=== PATIENT | female | born 1985 | race Caucasian/White ===

== ENCOUNTER 2016-07-28 04:59 | Inpatient (IN) | payer BC ==
[~2016-07-28] VITALS: Ht 160 cm; Wt 80.0 kg
[~2016-07-28 04:59] MED LIST: ACET-749 PO; ALBU1AER9 INH; EYED OP
[2016-07-28 05:45] VITALS: BMI 31.2
[2016-07-28] MEDS ORDERED: PRENTAB26 PO (05:45)
[2016-07-28] MEDS ORDERED: LACTATED RINGER'S 1000ML 1,000 ML IV SCH (09:16)
[2016-07-28] MEDS ORDERED: LACTATED RINGER'S 1000ML 1,000 ML IV PRN (09:16)
[2016-07-28 09:45] LABS: MEAN CELL VOLUME 91.1 fL (80-100); MEAN CORPUSCULAR HEMOGLOBIN 31.8 pg (25-34); MEAN CORPUSCULAR HGB CONC 34.9 g/dl (32-36); PLATELET COUNT 128 K/uL (130-400); RED BLOOD COUNT 4.06 M/uL (4.2-5.4)
[2016-07-28 09:51] VITALS: Ht 160 cm; Wt 80.0 kg
[2016-07-28] MEDS ORDERED: BUPIVACAINE 0.25% 30 ML VIAL ONE (09:52)
[2016-07-28] MEDS ORDERED: FENTANYL 2MCG/ML ROPIV 1.25MG/ML 100ML BAG EPI ONE (09:53)
[2016-07-28] MEDS ORDERED: FENTANYL CITRATE INJ 50 MCG/1 ML 2 ML VIAL ONE (09:53)
[2016-07-28] MEDS ORDERED: EpHEDrine SULFATE INJ 50 MG/ML AMP ONE (09:53)
[2016-07-28] MEDS ORDERED: LACTATED RINGER'S 1000ML 500 ML IV PRN (11:17)
[2016-07-28] MEDS ORDERED: NALOXONE HCL INJ 1 MG in SODIUM CHLORIDE 0.9% 1000ML 1,000 ML IV PRN (11:17)
[2016-07-28] MEDS ORDERED: EpHEDrine SULFATE INJ 50 MG/ML AMP IV PRN (11:30)
[2016-07-28] MEDS ORDERED: NALBUPHINE HCL INJ 10 MG/ML AMP IV PRN (11:30)
[2016-07-28] MEDS ORDERED: FENTANYL 2MCG/ML ROPIV 1.25MG/ML 100ML BAG EPI PRN (11:30)
[2016-07-28] MEDS ORDERED: NALOXONE HCL INJ 0.4 MG/1 ML VIAL/CARP IV PRN (11:30)
[2016-07-28] MEDS ORDERED: ONDANSETRON INJ 2 MG/ML 2 ML VIAL IV PRN (11:30)
[2016-07-28] MEDS ORDERED: DiphenhydrAMINE HCL 50 MG/ML VIAL IV PRN (11:30)
[2016-07-28] MEDS ORDERED: OXYTOCIN 30 UNITS/500ML NSS IV ONE (13:36)
[2016-07-28] MEDS ORDERED: ACETAMINOPHEN/CODEINE 300/30MG TAB PO PRN ×2 (14:30)
[2016-07-28] MEDS ORDERED: LANOLIN OINT EXT PRN ×2 (14:30)
[2016-07-28] MEDS ORDERED: SUPERCREAM 0.870 % 15GM JAR EXT PRN (14:30)
[2016-07-28] MEDS ORDERED: OXYTOCIN 30 UNITS/500ML NSS IV PRN (14:30)
[2016-07-28] MEDS ORDERED: ACETAMINOPHEN 325 MG TAB PO PRN (14:30)
[2016-07-28] MEDS ORDERED: BENZOCAINE 20% AER SPR 82.5 GM CAN EXT PRN (14:30)
[2016-07-28] MEDS ORDERED: HYDROCORTISONE ACETATE 25 MG SUPP PR PRN (14:30)
--- NOTE | 2016-07-28 15:55 | DELIVERY SUMMARY ---
DATE OF OPERATION: 07/28/2016 FINDINGS: Viable male with Apgars of 8 and 9. Baby delivered spontaneously over a midline second-degree laceration with a second-degree periurethral laceration. Cord blood samples obtained. Placenta delivered spontaneously. Lacerations repaired with 4-0 Vicryl. ESTIMATED BLOOD LOSS: 300 mL. LABOR NOTE: The patient is a 30-year-old 1, para 0 with an EDC of 22 July at 40+ weeks gestational age admitted in active labor. Patient states the contractions began yesterday afternoon into the evening. She was observed on labor and delivery with cervical change and admitted. The patient has had a benign course. Her blood type is A positive, antibody negative, rubella immune, hepatitis B negative. She declined a quad screen. She had a normal 1-hour Glucola x2 and a negative third trimester beta-strep culture. Upon admission, patient was 6 cm dilated, 90% effaced, and -1 station. Artificial rupture of membranes for clear fluid. After rupture of membranes contractions continued to increase in intensity, anesthesia was consulted and an epidural was placed. The patient progressed to full dilatation and began her second stage. She pushed for little under an hour delivering the viable male infant. Cord was clamped and cut. Cord blood samples obtained and the placenta was delivered spontaneously. Inspection of the perineum showed a midline second-degree laceration and a right second-degree periurethral laceration, both of these were repaired with 4-0 Vicryl. Estimated blood loss was 300 mL. Sponge and needle counts were correct. I attest to the content of the Intraoperative Record and any orders documented therein. Any exceptio ns are noted below.
--- NOTE | 2016-07-28 16:44 | Anesthesia Procedure Note ---
Anesthesia Epidural Removal Nt Date & Time Jul 28, 2016 at 16:43 Vital Signs Pain Intensity: 10.0 Notes Mental Status: alert / awake / arousable, participated in evaluation Nausea / Vomiting: adequately controlled Pain: adequately controlled Airway Patency, RR, SpO2: stable & adequate BP & HR: stable & adequate Hydration State: stable & adequate Neuraxial Anesthesia: was administered Anesthetic Complications: no major complications apparent, pt satisfied with anesthetic care Epidural: removed without complications, with tip intact
[2016-07-28 16:50] VITALS: BP 102/61; PULSE 98; TEMP 37.2
[2016-07-28] MEDS: DOCUSATE SODIUM 100 MG CAP PO SCH (19:16)
[2016-07-28] MEDS: IBUPROFEN 600 MG TAB PO PRN (19:17)
[2016-07-28 20:00] VITALS: BP 111/63; PULSE 92; TEMP 36.7
[2016-07-28 23:40] VITALS: BP 101/59; PULSE 83; TEMP 37.1
[2016-07-29 04:27] VITALS: BP 108/73; PULSE 81; TEMP 36.9
[2016-07-29] MEDS: IBUPROFEN 600 MG TAB PO PRN ×2 (05:00→21:00)
--- NOTE | 2016-07-29 06:25 | Progress Note ---
Subjective Jul 29, 2016. Subjective conversation w/ patient, physical exam Ambulation: ambulating normally Voiding: no voiding problems Passing Gas: Yes Diet Tolerance: Regular Diet Lochia: Small Feeding Type: Breast Feeding Pain: No pain reported this morning, well controlled with Motrin overnight Review of Systems Constitutional: No chills, No fever Respiratory: No cough, No shortness of breath Cardiac: No chest pain Breast: No breast pain Abdomen: No nausea, No pain, No vomiting Female : No dysuria Objective Vital Signs Date Time Temp Pulse Resp B/P Pulse Ox O2 Delivery O2 Flow Rate FiO2 07/29/16 04:27 Room Air 07/29/16 04:27 36.9 81 20 108/73 Room Air 07/28/16 23:40 Room Air 07/28/16 23:40 37.1 83 18 101/59 Room Air 07/28/16 20:00 36.7 92 18 111/63 Room Air 07/28/16 16:50 37.2 98 20 102/61 Room Air 07/28/16 16:50 Room Air Physical Exam General Appearance: WELL-APPEARING, WD/WN, NO APPARENT DISTRESS Respiratory/Chest: lungs clear, normal breath sounds Cardiovascular: regular rate, rhythm, no gallop, no murmur Abdomen: normal bowel sounds, non tender, soft Fundus: Firm, Relation to Umbilicus (At umbilicus) Extremities: no calf tenderness Laboratory Results Last 24 Hours Test 07/28/16 09:32 07/29/16 04:44 White Blood Count 15.20 K/uL Red Blood Count 4.06 M/uL Hemoglobin 12.9 g/dL Hematocrit 37.0 % Mean Corpuscular Volume 91.1 fL Mean Corpuscular Hemoglobin 31.8 pg Mean Corpuscular Hemoglobin Concent 34.9 g/dl RDW Standard Deviation 45.5 fL RDW Coefficient of Variation 13.8 % Platelet Count 128 K/uL Mean Platelet Volume 10.0 fL Medications Current Inpatient Medications Medications (Trade) Dose Ordered Sig/[place] Route Start Time Stop Time Status Last Admin Dose Admin Lactated Ringer's (Lr 1000ml) 1,000 ml @ 125 mls/hr Q8H IV 07/28/16 09:16 07/30/16 09:15 07/28/16 11:08 125 MLS/HR Oxytocin (Pitocin IV) 30 units UD PRN IV 07/28/16 14:30 08/27/16 14:29 Benzocaine (Dermoplast Aero Spr) 1 appln PRN PRN EXT 07/28/16 14:30 08/27/16 14:29 07/28/16 17:54 1 APPLN Cocaine HCl (Supercream 0.870% Cr) BID PRN EXT 07/28/16 14:30 08/11/16 14:29 Hydrocortisone Acetate (Anusol Hc Supp) 25 mg BID PRN NM 07/28/16 14:30 08/27/16 14:29 Lanolin (Lanolin Oint) PRN PRN EXT 07/28/16 14:30 08/27/16 14:29 Prenat Multivit/ Turbo Generator Oiler/Iron/Folic Ac ( Vitamin Tab) 1 tab DAILY PO 07/29/16 08:00 08/28/16 07:59 Ibuprofen (Motrin Tab) 600 mg Q4H PRN PO 07/28/16 14:30 08/27/16 14:29 07/29/16 05:00 600 MG Acetaminophen (Tylenol Tab) 650 mg Q6H PRN PO 07/28/16 14:30 08/27/16 14:29 Acetaminophen/ Codeine Phosphate (Tylenol w/ Codeine #3 Tab) 1 tab Q4H PRN PO 07/28/16 14:30 08/27/16 14:29 Acetaminophen/ Codeine Phosphate (Tylenol w/ Codeine #3 Tab) 2 tab Q4H PRN PO 07/28/16 14:30 08/27/16 14:29 Bisacodyl (Dulcolax Tab) 5 mg 20 PO 07/29/16 20:00 07/29/16 20:01 Docusate Sodium (coLACE CAP) 100 mg BID PO 07/28/16 20:00 08/27/16 19:59 07/28/16 19:16 100 MG Ferrous Sulfate (Feosol Tab) 325 mg DAILY PO 07/29/16 08:00 08/28/16 07:59 Assessment and Plan Post- Day#: 1 Continue Routine Care: - Vital Signs reviewed and WNL (temp max 37.2) - Blood Type: A+, GBS- , Rubella Immune - Patient doing well clinically - Encourage Ambulation today - Pain well controlled with Motrin - Tolerating PO diet
[2016-07-29 07:25] VITALS: BP 102/64; PULSE 69; TEMP 36.5; O2SAT 99
[2016-07-29] MEDS: DOCUSATE SODIUM 100 MG CAP PO SCH ×2 (08:03→19:38)
[2016-07-29] MEDS: PRENATAL VITAMIN TAB PO SCH (08:03)
[2016-07-29] MEDS: FERROUS SULFATE 325 MG TAB PO SCH (08:04)
[2016-07-29 11:45] VITALS: BP 114/76; PULSE 85; TEMP 37.5; O2SAT 98
[2016-07-29 16:15] VITALS: BP 114/70; PULSE 98; TEMP 36.6; O2SAT 99
[2016-07-29] MEDS ORDERED: BISACODYL 5 MG TABEC PO SCH (20:00)
[2016-07-29 23:35] VITALS: BP 107/72; PULSE 72; TEMP 36.6
--- NOTE | 2016-07-30 06:43 | Progress Note ---
Subjective Jul 30, 2016. Subjective conversation w/ patient, physical exam Ambulation: ambulating normally Voiding: no voiding problems Passing Gas: Yes Diet Tolerance: Regular Diet Lochia: Small Feeding Type: Breast Feeding Pain: No pain reported this morning Review of Systems Constitutional: No chills, No fever Respiratory: No cough, No shortness of breath Cardiac: No chest pain Breast: No breast pain Abdomen: No nausea, No pain, No vomiting Female : No dysuria Objective Vital Signs Date Time Temp Pulse Resp B/P Pulse Ox O2 Delivery O2 Flow Rate FiO2 07/29/16 23:35 Room Air 07/29/16 23:35 36.6 72 18 107/72 Room Air 07/29/16 16:15 36.6 98 16 114/70 99 Room Air 07/29/16 16:15 99 Room Air 07/29/16 11:45 37.5 85 20 114/76 98 Room Air 07/29/16 07:25 36.5 69 18 102/64 99 Room Air 07/29/16 07:25 99 Room Air Physical Exam General Appearance: WELL-APPEARING, WD/WN, NO APPARENT DISTRESS Respiratory/Chest: lungs clear, normal breath sounds Cardiovascular: regular rate, rhythm, no gallop, no murmur Abdomen: normal bowel sounds, non tender, soft Fundus: Firm, Relation to Umbilicus (At umbilicus) Extremities: no calf tenderness Medications Current Inpatient Medications Medications (Trade) Dose Ordered Sig/Salvdaor Route Start Time Stop Time Status Last Admin Dose Admin Lactated Ringer's (Lr 1000ml) 1,000 ml @ 125 mls/hr Q8H IV 07/28/16 09:16 07/30/16 09:15 07/28/16 11:08 125 MLS/HR Oxytocin (Pitocin IV) 30 units UD PRN IV 07/28/16 14:30 08/27/16 14:29 Benzocaine (Dermoplast Aero Spr) 1 appln PRN PRN EXT 07/28/16 14:30 08/27/16 14:29 07/28/16 17:54 1 APPLN Cocaine HCl (Supercream 0.870% Cr) BID PRN EXT 07/28/16 14:30 08/11/16 14:29 Hydrocortisone Acetate (Anusol Hc Supp) 25 mg BID PRN MT 07/28/16 14:30 08/27/16 14:29 Lanolin (Lanolin Oint) PRN PRN EXT 07/28/16 14:30 08/27/16 14:29 Prenat Multivit/ [place]/Iron/Folic Ac ( Vitamin Tab) 1 tab DAILY PO 07/29/16 08:00 08/28/16 07:59 07/29/16 08:03 1 TAB Ibuprofen (Motrin Tab) 600 mg Q4H PRN PO 07/28/16 14:30 08/27/16 14:29 07/29/16 21:00 600 MG Acetaminophen (Tylenol Tab) 650 mg Q6H PRN PO 07/28/16 14:30 08/27/16 14:29 Acetaminophen/ Codeine Phosphate (Tylenol w/ Codeine #3 Tab) 1 tab Q4H PRN PO 07/28/16 14:30 08/27/16 14:29 Acetaminophen/ Codeine Phosphate (Tylenol w/ Codeine #3 Tab) 2 tab Q4H PRN PO 07/28/16 14:30 08/27/16 14:29 Docusate Sodium (coLACE CAP) 100 mg BID PO 07/28/16 20:00 08/27/16 19:59 07/29/16 19:38 100 MG Ferrous Sulfate (Feosol Tab) 325 mg DAILY PO 07/29/16 08:00 08/28/16 07:59 07/29/16 08:04 325 MG Assessment and Plan Post- Day#: 2 Continue Routine Care: - Vital Signs reviewed and WNL (temp max 37.5) - Blood Type: A+, GBS- , Rubella Immune - Patient doing well clinically - Encourage Ambulation today - Pain well controlled with Motrin - Tolerating PO diet - Discharge today Resident Physician Supervision Note: I interviewed and examined the patient. Discussed with Dr. Porter and agree with findings and plan as documented in the note. Any exceptions or clarifications are listed here: [None] Documented By: Dany Coffman
--- NOTE | 2016-07-30 06:45 | Discharge Instructions ---
Discharge Instructions Admission Reason for Admission: Labor Check (Irving Porter MD) Discharge Discharge Diagnosis / Problem: Vaginal Delivery (Irving Porter MD) Discharge Goals Goal(s): Routine recovery after delivery (Irving Porter MD) Medications Continue Dispensed Medications: supercream, dermaplast, tucks, lansinoh (Irving Porter MD) Activity Recommendations Activity Limitations: per Instructions/Follow-up section . (Irving Porter MD) Instructions / Follow-Up Instructions / Follow-Up ACTIVITY RECOMMENDATIONS: * Gradual return to full activity over the next 2-3 weeks. * No lifting - nothing heavier than baby over the next 2-3 weeks. * Do not engage in vigorous exercise, sexual activity or sports until cleared by your physician. * Do not drive or operate any motorized equipment until cleared by your physician. * You may shower/bathe daily. MEDICATIONS: For discomfort or pain, you may use Acetaminophen (Tylenol), Ibuprofen (Advil), or Naproxen (Aleve) following the package directions. For constipation you may use Colace following the package directions. BREAST CARE: If you are not breast feeding: * Wear a supportive bra 24 hours a day for one to two weeks. * Avoid stimulating your breasts and nipples as much as possible during the first few weeks after delivery. * When taking a shower, have the warm water hit your back, not breasts. * When your breasts feel full, apply ice packs. Usually three to four times a day helps ease the discomfort. * Take a mild pain medication (Tylenol / Motrin) when you are uncomfortable. If breast feeding: * Use breast milk to lubricate nipples. Lansinoh cream may be used for sore nipples. You do not need to remove cream prior to breast feeding. If using a different brand of cream, check the label for directions regarding removal of cream prior to nursing. * Wear a supportive bra. * If having problems with breasts or breast feeding, call a men's custom hair piece consultant or your health care provider. EPISIOTOMY CARE: After delivery, if you have an episiotomy (stitches), the following steps will ease discomfort and aid healing. * For the first 24 hours after delivery, place ice packs next to your episiotomy to help reduce swelling. * After the first 24 hour-period, sitz baths, either portable or in the tub, are suggested. A shower with a shower arm sprayed over the episiotomy may be comforting. * La care should be done after each voiding and bowel movement. Squirt warm water from a plastic bottle over the perineum (region of the body between the anus and urinary opening) and pat dry. * Use Dermoplast to ease discomfort. Shake container. [place] directly over the episiotomy. Place a Tucks on a clean sanitary pad next to your episiotomy. SPECIAL CARE INSTRUCTIONS: When you are discharged from the hospital, it is important for you to follow the instructions listed below: * During the first week at home, you should be able to care for yourself and your baby. In addition, the usual light household activities are encouraged. * Limit your activities to the way you feel. Do not try to clean the house or move furniture. Be sensible. * If you actively engage in sports and have done so up until the time of your delivery, you may resume these activities as soon as you feel able. This may take up to one month or even longer. Use good judgment. * Continue to take your vitamins for at least six weeks after the of your baby. * Your diet need not be limited unless you were on a special diet before your delivery. Breast-feeding mothers need around 2500 calories per day and at least 64-80 ounces of fluid per day (8 to 10 glasses). * You should eat foods from the four major food groups. Crash diets or fad diets are to be avoided. Eating lean meats, fresh fruits and vegetables, low-fat dairy products, high fiber foods and a regular exercise program, will help you get back to your pre- weight without putting your health at risk. * Constipation is sometimes a problem after delivery. Take a mild laxative as needed. If breast feeding, Milk of Magnesia is acceptable to use. You may use a suppository or Fleets enema if no episiotomy. * A daily shower or tub bath is suggested. Be sure to thoroughly and gently dry the perineum. * A bloody vaginal discharge will usually continue until around four weeks post . A small amount of bleeding may continue for as long as six weeks. Vaginal discharge changes from the bright red bleeding after delivery to pink then brownish and finally yellowish-pink before becoming white and disappearing. * Bleeding may increase with activity. Your first period may come in 4-8 weeks. If you are breast feeding, your period may be delayed even longer. * [place] (sex) can begin whenever both you and your partner feel comfortable and do not have any form of genital infection. It is recommended that you wait at least six weeks for internal and external healing to occur. If you have questions, please talk to your health care practitioner. A condom should be used to prevent infection and . * Foreplay, gentle intercourse and lubrication is very important the first several times to prevent pain. A water-based lubricant such as K-Y jelly or Astroglide may be used. * If you have RH negative blood and your baby is RH positive, you will receive RHOGAM by injection prior to discharge. The nurse will give you a card to keep with you that has the date and place that you received RHOGAM after delivery. * During your care, you had a Rubella screen done to check for the presence of rubella antibodies in your blood. If your test was negative, you will receive a Rubella vaccine prior to discharge. This vaccine may cause a fever, soreness at the injection site and flu-like symptoms. If these symptoms persist, notify your health care practitioner. is not advised for one month after a Rubella vaccine. * Verbalizes understanding of car seat law as reviewed with patient nursing. * Car Seat hand-out given and reviewed with patient by nursing. * Shaken baby information reviewed with patient by nursing. Call you doctor if: * Heavy bleeding (saturating several pads an hour) or passing clots the size of your fist. * A fever >101 degrees F (38.3 degrees C) on two occasions four hours apart and /or chills. * Unusual pain in the pelvic or vaginal areas. * "Baby Blues" lasting longer than two weeks. If you have any questions or concerns, call your health care practitioner at . FOLLOW UP VISIT: * Please call the office at to schedule a 6 week examination. It is important you keep this appointment. It is important for you to make arrangements for either yearly or twice yearly check-ups thereafter. (Irving Porter MD) Current Hospital Diet Patient's current hospital diet: Regular OB Diet (Irving Porter MD) Discharge Diet Recommended Diet: Regular Diet (Irving Porter MD) Pending Studies Studies pending at discharge: no (Irving Porter MD) Medical Emergencies . Who to Call and When: Medical Emergencies: If at any time you feel your situation is an emergency, please call 911 immediately. . (rIving Porter MD) Non-Emergent Contact Non-Emergency issues call your: [employer] . (Irving Porter MD) . "Provider Documentation" section prepared by Irving Porter. (Irving Porter MD) VTE Core Measure Inpt VTE Proph given/why not?: Treatment not indicated (Irving Porter MD)
[2016-07-30] MEDS: DOCUSATE SODIUM 100 MG CAP PO SCH (07:41)
[2016-07-30] MEDS: FERROUS SULFATE 325 MG TAB PO SCH (07:41)
[2016-07-30] MEDS: PRENATAL VITAMIN TAB PO SCH (07:41)
[2016-07-30] MEDS: IBUPROFEN 600 MG TAB PO PRN (07:46)
[2016-07-30 09:35] VITALS: BP 119/71; PULSE 81; TEMP 37.3; O2SAT 99
[2016-07-30 14:30] VITALS: BP_DIAS 71; PULSE 81; TEMP 37.3
== END 2016-07-30 15:10 | disposition home or self-care (01) | DRG 775 ==
LOC: C.LD 04:59 → C.OPB 04:59 → C.LD 09:18 → C.OPB 09:18 → C.OBG 16:45
PROVIDERS: ADMIT Obstetrics & Gynecology; ATTEND Obstetrics & Gynecology
PROC: 0UQMXZZ Repair Vulva, External Approach (ICD-10-PCS; principal; 2016-07-28)
PROC: 0KQM0ZZ Repair Perineum Muscle, Open Approach (ICD-10-PCS; principal; 2016-07-28)
PROC: 10E0XZZ Delivery of Products of Conception, External Approach (ICD-10-PCS; principal; 2016-07-28)
DX: O48.0 Post-term pregnancy (principal); Z37.0 Single live birth; O76 Abnormality in fetal heart rate and rhythm complicating labor and delivery; O71.82 Other specified trauma to perineum and vulva; O70.1 Second degree perineal laceration during delivery; Z3A.40 40 weeks gestation of pregnancy

== ENCOUNTER → 2016-09-05 | Outpatient (CLI) | payer BC ==
[~2016-09-05] MED LIST changes: -ACET-749 PO; -ALBU1AER9 INH; -EYED OP; +PRENTAB26 PO
== END | disposition home or self-care (01) ==
LOC: C.PAPS 10:56
PROVIDERS: ATTEND Obstetrics & Gynecology
DX: Z01.419 Encounter for gynecological examination (general) (routine) without abnormal findings (principal)